=== PATIENT | female | born 1950 | race Native Hawaiian/Other Pacific Islander ===

== ENCOUNTER 2017-04-14 10:55 | Emergency (ER) | payer OTHER ==
[~2017-04-14] VITALS: Ht 154.9 cm; Wt 69.0 kg
[2017-04-14 10:57] VITALS: BP 149/69; PULSE 73; RESP 18; TEMP 100; O2SAT 97
[2017-04-14] MEDS ORDERED: HYDR-3799 PO ×2 (11:07)
[2017-04-14] MEDS ORDERED: VALS1TAB64 PO (11:07)
[2017-04-14] MEDS ORDERED: ATOR10TA15 PO (11:07)
[2017-04-14] MEDS ORDERED: SPIR25TA PO (11:07)
[2017-04-14] MEDS ORDERED: ACETAMINOPHEN 325 MG TAB PO ONE (11:15)
[2017-04-14] MEDS ORDERED: SODIUM CHLORIDE 0.9% FLUSH 10 ML FLUSH IVF PRN (11:15)
[2017-04-14 11:41] VITALS: O2SAT 96
--- NOTE | 2017-04-14 11:53 | PD ---
HPI Chief Complaint: Cold / Flu Symptoms Time Seen by Provider: 11:09 Travel History International Travel<30 days: No Contact w/Intl Traveler<30days: No Traveled to known affect area: No History of Present Illness HPI Patient is a 66-year-old female presenting to the emergency department for evaluation of nasal congestion, sneezing, cough. Patient reports a low-grade temp of 100.4 at home this morning. She has not taken any acetaminophen or ibuprofen. She denies any nausea, vomiting chest pain, shortness of breath, abdominal pain, headache. She reports that this happened a few months ago and was given a nasal spray which she forgot home. Patient is from [place]. She also reports mild body aches. Patient reports a past medical history significant for hypertension and hyperlipidemia. Symptoms started gradually yesterday. Again they are unrelieved by anything because patient has not taken any medications to alleviate her symptoms. PFSH Past Medical History High Cholesterol: Yes Hypertension: Yes Tetanus Vaccination: Unknown Influenza Vaccination: No Past Surgical History Section: Yes Hysterectomy: Yes Other Surgery: Yes (LUMP REMOVED FROM LEFT BREAST) Social History Alcohol Use: No Tobacco Use: No Substance Use: No Allergies-Medications (Allergen,Severity, Reaction): Coded Allergies: No Known Allergies (Verified Allergy, Unknown, 04/14/17) Reported Meds & Prescriptions Reported Meds & Active Scripts Active Ipratropium Nasal 0.06% Llewellyn 1 Llewellyn EACH NARE TID Zofran Odt (Ondansetron Odt) 4 Mg Tab 4 Mg SL Q6HR PRN Reported Atorvastatin (Atorvastatin Calcium) 10 Mg Tab 10 Mg PO HS Hydralazine HCl 25 Mg Tablet 25 Mg PO HS Hydralazine HCl 25 Mg Tablet 12.5 Mg PO DAILY Spironolactone 25 Mg Tab 25 Mg PO DAILY Valsartan 80 Mg Tab 80 Mg PO BID Review of Systems Except as stated in HPI: all other systems reviewed are Neg General / Constitutional: Positive: Fever, No: Chills Eyes: No: Blurred Vision HENT: Positive: Congestion, No: Headaches, Lightheadedness Cardiovascular: No: Chest Pain or Discomfort, Edema Respiratory: Positive: Cough, No: Shortness of Breath, Wheezing, Orthopnea Gastrointestinal: No: Nausea, Vomiting, Abdominal Pain Genitourinary: No: Dysuria Musculoskeletal: Positive: Myalgias Physical Exam Narrative GENERAL: Well-developed, well-nourished, alert female. Resting comfortably in no acute distress. SKIN: Warm and dry. HEAD: Atraumatic. Normocephalic. EYES: Pupils equal and round. No scleral icterus. No injection or drainage. ENT: No nasal bleeding or discharge. Mucous membranes pink and moist. Posterior pharynx is cobblestone appearance. NECK: Trachea midline. No JVD. CARDIOVASCULAR: Regular rate and rhythm. RESPIRATORY: No accessory muscle use. Clear to auscultation. Breath sounds equal bilaterally. GASTROINTESTINAL: Abdomen soft, non-tender, nondistended. Hepatic and splenic margins not palpable. MUSCULOSKELETAL: Extremities without clubbing, cyanosis, or edema. No obvious deformities. NEUROLOGICAL: Awake and alert. No obvious cranial nerve deficits. Motor grossly within normal limits. Five out of 5 muscle strength in the arms and legs. Normal speech. PSYCHIATRIC: Appropriate mood and affect; insight and judgment normal. Data Data Last Documented VS Vital Signs Date Time Temp Pulse Resp B/P (MAP) Pulse Ox O2 Delivery O2 Flow Rate FiO2 04/14/17 12:19 18 04/14/17 11:41 96 04/14/17 11:03 Room Air 04/14/17 10:57 100.0 73 Orders Orders Group A Rapid Strep Screen (04/14/17 11:11) Influenzae A/B Antigen (04/14/17 11:11) Oximetry (04/14/17 11:11) Acetaminophen (Tylenol) (04/14/17 11:15) Sodium Chloride 0.9% Flush (Ns Flush) (04/14/17 11:15) Strep Culture (Group A) (04/14/17 11:13) Oseltamivir (Tamiflu) (04/14/17 12:15) MDM Medical Decision Making Medical Screen Exam Complete: Yes Emergency Medical Condition: Yes Interpretation(s) Vital Signs Date Time Temp Pulse Resp B/P (MAP) Pulse Ox O2 Delivery O2 Flow Rate FiO2 04/14/17 11:03 18 Room Air 04/14/17 10:57 100.0 73 18 149/69 (95) 97 Room Air Differential Diagnosis Viral syndrome versus sinusitis versus bronchitis versus other Narrative Course Patient is a 66-year-old female that presented to emergency department for evaluation of cold of flu symptoms that started last night. Patient was mildly febrile with a temp of 100 on arrival. She did not take any acetaminophen or ibuprofen. Patient was given acetaminophen 650 mg by mouth 1 dose. Strep and influenza ordered and pending. Patient's lungs are clear to auscultation. Physical exam appears consistent with a viral syndrome. She is well-appearing otherwise. Patient is positive for influenza A. Tamiflu 75 mg by mouth 1 dose ordered. She was encouraged to maintain adequate fluid intake, continue with symptomatic management. She was advised to Tamiflu may lessen symptoms by 1-2 days. She was advised on possible side effects of Tamiflu. She was encouraged to maintain strict hand washing. She is encouraged to follow-up with her primary doctor return to emergency department for any new or worsening symptoms. Patient verbalized understanding of instructions. Patient is stable for discharge. Diagnosis Primary Impression: Influenza A Referrals: Primary Care Physician 1 week Patient Instructions: General Instructions, Influenza (ED) Additional Instructions: Continue symptom management Maintain adequate fluid intake Take medications as directed Return to the emergency department for any new or worsening symptoms Follow-up with your primary doctor Med/Other Pt SpecificInfo: Prescription(s) given Scripts Oseltamivir (Tamiflu) 75 Mg Cap 75 MG PO BID for Mgmt Viral Infection, #9 CAP 0 Refills Prov: Lavinia Garland 04/14/17 Acetaminophen (Tylenol) 325 Mg Tab 650 MG PO Q4H Y for FEVER for 10 Days, #120 TAB 0 Refills Prov: Lavinia Garland 04/14/17 Ipratropium Nasal (Ipratropium Nasal) 0.06% Llewellyn 1 SPRAY EACH NARE TID, #1 BOTTLE 0 Refills Prov: Lavinia Garland 04/14/17 Ondansetron Odt (Zofran Odt) 4 Mg Tab 4 MG SL Q6HR Y for Nausea/Vomiting, #30 TAB 0 Refills Prov: Lavinia Garland 04/14/17 Disposition: 01 DISCHARGE HOME Condition: Stable Lavinia Garland Apr 14, 2017 11:52
[2017-04-14] MEDS ORDERED: OSELTAMIVIR PHOSPHATE 75 MG CAP PO ONE (12:15)
[2017-04-14 12:19] VITALS: RESP 18
[2017-04-14] MEDS ORDERED: IPRA0.06 EACH NARE (12:27)
[2017-04-14] MEDS ORDERED: TYLE325T PO (12:27)
[2017-04-14] MEDS ORDERED: ZOFR4TAB3 SL (12:27)
[2017-04-14] MEDS ORDERED: OSEL75 PO (12:29)
== END 2017-04-14 12:38 | disposition home or self-care (01) ==
LOC: NEPD 10:55
DX: J09.X2 Influenza due to identified novel influenza A virus with other respiratory manifestations (principal); I10 Essential (primary) hypertension; E78.5 Hyperlipidemia, unspecified; E78.00 Pure hypercholesterolemia, unspecified; Z79.899 Other long term (current) drug therapy
CPT/HCPCS: 87081; 87804; 87880; 99284